=== PATIENT | female | born 1960 ===

== ENCOUNTER 2025-06-10 12:29 | Emergency (ER) | payer MEDICAID | END 2025-06-10 16:35 | disposition home or self-care (01) | LOC: JD.ED 12:29 | DX: T74.91XA Unspecified adult maltreatment, confirmed, initial encounter (principal); Z76.0 Encounter for issue of repeat prescription; I10 Essential (primary) hypertension; E11.42 Type 2 diabetes mellitus with diabetic polyneuropathy; F17.200 Nicotine dependence, unspecified, uncomplicated; Z79.899 Other long term (current) drug therapy | CPT/HCPCS: 99283; A9270 ==